=== PATIENT | female | born 1990 | race African-American/Black ===

== ENCOUNTER 2019-02-10 21:07 | Emergency (ER) | payer MEDICAID, SELFPAY ==
[2019-02-10 21:08] VITALS: BP 145/69; PULSE 97; RESP 18; TEMP 36.9; O2SAT 95; BMI 113.7
--- NOTE | 2019-02-10 22:00 | CT_ITS ---
STUDY: CT ABDOMEN AND PELVIS WITHOUT CONTRAST REASON FOR EXAM: Female, 28 years old. Dominant, nausea pain, vomiting RADIATION DOSAGE (If Supplied By Facility): CTDIvol = ( 24.18 ) mGy, DLP = ( 1461.94 ) mGycm TECHNIQUE: Transaxial images were obtained from the dome of the diaphragm to the symphysis pubis without oral contrast, and without intravenous contrast. Sagittal and coronal images were reconstructed. Individualized dose optimization techniques were used for this CT. COMPARISON: None. FINDINGS: This is a limited non-IV nonoral contrast study. The visualized lung bases are unremarkable. The visualized portions of the heart are within normal limits. Normal liver. Normal gallbladder and extrahepatic biliary system. Normal spleen. Normal pancreas. Normal bilateral adrenal glands. Normal right kidney. Normal left kidney. Normal visualized stomach. Normal small intestine. There is a moderate colonic fecal load. There is wall thickening of the rectum. The appendix is visualized and appears normal. Normal abdominal aorta. Normal inferior vena cava. Normal retroperitoneum. Normal urinary bladder. Normal abdominal wall. Normal osseous structures. CT/Abdomen/Pelvis without Cont IMPRESSION: This is a limited non-IV nonoral contrast study. Moderate colonic fecal load, wall thickening of the rectum which could be due to incomplete distention, colitis pattern or colonic malignancy. CT colonoscopy or colonoscopy follow-up would be recommended. Electronically Signed: Jose Mejia, at 23:14 EDT Tel , Service support ,
[2019-02-10] MEDS: 0.9% Normal Saline 1,000 ML 1000 ML IV (22:18)
[2019-02-10] MEDS: Morphine 4 MG/ML Syringe IV ×2 (22:19→23:34)
[2019-02-10] MEDS: Ondansetron 4 MG/2 ML Vial IV (22:19)
[2019-02-10 22:35] LABS: Absolute Lymphocyte Count 2.57 X10^3/ul (0.83-4.51); Absolute Neutrophil Count 6.6 X10^3/uL (2.0-7.7); Basophil# 0.01 X10^3/uL; Basophil% 0.1 % (0-1); Hematocrit 34.1 % (37-47); Hemoglobin 10.3 g/dl (12.0-15.0); Lymphocyte # 2.57 X10^3/ul (4.0); Lymphocyte % 26.7 % (19-41); Mean Corp Hgb Conc 30.2 g/gl (32-36); Mean Corpuscular Hgb 21.9 pg (27.0-32.0); Mean Corpuscular Volume 72.6 fL (81-99); Mean Platelet Vol. 8.6 fl (6.2-12.0); Monocyte# 0.47 X10^3/uL; Monocyte% 4.9 % (0-10); Neutrophil # 6.55 X10^3/uL (2.7-7.7); Neutrophil % 68.1 % (47-70); Platelet Count 314 K/mm3 (150-450); RBC Distribution Width CV 15.9 % (11.6-14.6); RBC Distribution Width SD 42.3 fl (35.1-43.9); White Blood Count 9.6 K/mm3 (4.4-11.0)
[2019-02-10 22:36] LABS: Differential Indicated SCAN CRITERIA MET; POSITIVE COUNT NO; POSITIVE DIFFERENTIAL NO; POSITIVE MORPHOLOGY YES
[2019-02-10 22:48] LABS: ALB/GLOB Ratio 0.6 RATIO (0.9-2.4); AST(SGOT) 14 U/L (15-37); Alanine Aminotransfer ALT/SGPT 22 U/L (13-56); Albumin, Serum 3.1 g/dL (3.2-5.0); Alkaline Phosphatase 139 U/L (45-117); Anion Gap 6 (5-15); BUN 14 mg/dL (7-18); BUN/Creat Ratio 14.2 RATIO (10-20); Calcium,Total 8.5 mg/dL (8.5-10.1); Chloride 101 mmol/L (98-107); Creatinine, Serum 0.99 mg/dL (0.55-1.02); EST Glomerular Filtration Rate 72 mL/min (>60); Est Glom Filt Rate - Afr Amer 87 mL/min (>60); Estimated Creatinine Clearance 77.49 ml/min; Globulin 4.8 g/dL (2.2-4.2); Glucose 154 mg/dL (74-106); Lipase 105 U/L (73-393); Potassium 3.9 mmol/L (3.5-5.1); Protein, Total 7.9 g/dL (6.4-8.2); Sodium Level 134 mmol/L (136-145)
[2019-02-10 22:59] LABS: Differential Comment SCANNED
[2019-02-10 23:38] VITALS: RESP 16
--- NOTE | 2019-02-10 23:56 | ED.VISSUMM ---
- ER Visit Summary Date of Service: 02/10/19 Chief Complaint: Abdominal pain History of Present Illness: The patient is a 28 F with abdominal pain for the past 2-3 days. She has somewhat decreased BMs she has some nausea and 2 episodes of vomiting no chest pain shortness of breath no fever or chills no difficulty swallowing. Physical Examination: Patient had's and mute, I am discussing through the official inspector soldering on the iPad. 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 Emergency Department Course and Treatment: White count is normal, CT shows constipation patient will be discharged with MiraLAX. Disposition: Discharge stable condition Impression: Constipation This note was generated with Dajie dictation software. It may contain incorrect words, spelling, and punctuation that were not noted in review of the chart prior to signing ED Disposition - Plan for ED Patient: Disposition: Home or Assisted Living Instructions: ED Constipation Prescriptions: Polyethylene Glycol 3350 [Miralax] 17 gm PO DAILY #10 packet Referrals: Care Physician,No Primary [Primary Care Provider] - 3-5 Days
--- NOTE | 2019-02-11 00:01 | ED.DCSUM_ITS ---
- ER Visit Summary Date of Service: 02/10/19 Chief Complaint: Abdominal pain History of Present Illness: The patient is a 28 F with abdominal pain for the past 2-3 days. She has somewhat decreased BMs she has some nausea and 2 episodes of vomiting no chest pain shortness of breath no fever or chills no d ifficulty swallowing. Physical Examination: Patient had's and mute, I am discussing through the official parts interpreter on the iPad. 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 Emergency Department Course and Treatment: White count is normal, CT shows constipation patient will be discharged with MiraLAX. Disposition: Discharge stable condition Impression: Constipation This note was generated with Eland dictation software. It may contain incorrect words, spelling, and punctuation that were not noted in review of the chart prior to signing ED Disposition - Plan for ED Patient: Disposition: Home or Assisted Living Instructions: ED Constipation Prescriptions: Polyethylene Glycol 3350 [Miralax] 17 gm PO DAILY #10 packet Referrals: Care Physician,No Primary [Primary Care Provider] - 3-5 Days
[2019-02-11 00:03] VITALS: RESP 16
--- NOTE | 2019-02-11 00:18 | ED.DEP ---
ED Disposition - Plan for ED Patient: Disposition: Home or Assisted Living Instructions: ED Constipation, Treating Gastritis Prescriptions: Ondansetron [Zofran Odt] 4 mg PO Q8H PRN PRN #10 tab PRN Reason: Nausea Omeprazole 0 mg PO DAILY #30 capsule. Polyethylene Glycol 3350 [Miralax] 17 gm PO DAILY #10 packet Referrals: Care Physician,No Primary [Primary Care Provider] - 3-5 Days
[2019-02-11] MEDS: Ondansetron ODT 4 MG Tablet 8 MG PO (01:55)
== END 2019-02-11 02:39 | disposition home or self-care (01) ==
PROVIDERS: Emergency Medicine; Emergency Provider Emergency Medicine
DX: K59.00 Constipation, unspecified (principal); R11.2 Nausea with vomiting, unspecified; Z89.612 Acquired absence of left leg above knee
CPT/HCPCS: 74176; 80053; 83690; 85025; 96361; 96374; 96375; 96376; 99283; J7030; A4216; J2405

== ENCOUNTER 2019-02-11 15:33 | Emergency (ER) | payer MEDICAID, SELFPAY ==
[2019-02-10 21:08] VITALS: BMI 113.7
[2019-02-11 15:34] VITALS: BP 137/79; PULSE 93; RESP 18; TEMP 36.6; O2SAT 94
--- NOTE | 2019-02-11 15:46 | ED.VIS.GEN ---
History of Present Illness Chief Complaint: Abd Pain Detail of Chief Complaint: Unable to obtain Narrative: Patient is a 28-year-old female who does not read lips and will not communicate in any form with me. I was informed that the sign spanish medical interpreter was paged and would be 1 hour. I also was informed that she was seen at [facility] prior to presentation in the emergency department. At this point history is unobtainable. Once sign spanish medical interpreter arrived able to obtain history and performed physical. Patient presents because of medicine she was given last evening did not alleviate her nausea vomiting diarrhea. She reported improvement after Zofran. She was given Reglan. Prior similar symptoms: No Recent Illness/Hospitalization: No Past Medical History - Allergies and Home Meds Allergies/Adverse Reactions: Allergies latex Allergy (Verified 02/10/19 21:13) Rash Primary Care Physician: Care Physician,No Primary [Primary Care Provider] - Smoking Status: Unknown if ever smoked Review of Systems ROS: Unable to Obtain - At the time of initial evaluation unobtainable. Patient will not attempt to read my lips, communicate by writing. General: Denies: Chills, Fever, Sweats Eyes: Denies: Visual changes - bilaterally, Blurred Vision - bilaterally, Diplopia ENT: Denies: Rhinorrhea, Sore throat Cardiovascular: Denies: Chest pain, Palpitations Respiratory: Denies: Dyspnea, Cough, Dyspnea on exertion Gastrointestinal: Reports: Abdominal pain, Nausea, Vomiting, Diarrhea. Denies: Melena, Hematochezia Genitourinary: Denies: Dysuria, Hematuria, Frequency Musculoskeletal: Denies: Back pain, Extremity Pain Skin: Denies: Rash, Wounds Neurological: Reports: Headache. Denies: Weakness, Numbness Physical Exam Vital Signs/Narrative: Vital Signs Temp Pulse Resp BP Pulse Ox 02/11/19 15:34 97.8 F 93 18 137/79 H 94 Inital Vital Signs reviewed: Yes General: Well nourished, Well developed, No Acute Distress Head: Normocephalic, Atraumatic Eyes: Perrl, EOMI. Negative for: Pale conjunctiva, Scleral icterus ENT: No rhinorrhea, Dry mucous membranes Neck: Supple, Nontender, No lymphadenopathy, No JVD Cardiovascular: Regular rate, Regular rhythm, No murmurs, Normal S1, Normal S2 Respiratory: No distress, CTA bilaterally, Chest nontender, Chest tenderness Abdomen: Soft, Nondistended, No masses, Tender, Hypoactive bowel sounds. Negative for: Nontender, Normal bowel sounds, Guarding, Rebound tenderness, Hyperactive bowel sounds, Hepatomegaly, Splenomegaly, Mass, Pulsatile mass, Ventral hernia, Umbilical hernia, Solis's sign Back: Negative for: Nontender, Normal Inspection Extremities: Nontender, No edema Skin: Normal color, No rash Neurological: Alert, Oriented x3, Cranial nerves II-XII grossly intact, Normal Strength, Normal Sensation Psychological: Normal affect, - - Patient appears angry and gave me a score and full look when I asked if she would communicate by writing. She then closed her eyes and looked away. Diagnostic/Tx/Re-eval Laboratory Results 02/11/19 02/11/19 02/11/19 16:40 16:40 16:40 WBC 9.2 RBC 4.58 Hgb 10.1 L Hct 33.8 L MCV 73.8 L MCH 22.1 L MCHC 29.9 L RDW 16.1 H RDW Differential 43.3 Plt Count 274 MPV 8.1 Immature Gran % (Auto) 0.100 Neut % (Auto) 73.1 H Lymph % (Auto) 22.6 [place] % (Auto) 4.1 Eos % (Auto) 0.0 Baso % (Auto) 0.1 Absolute Neuts (auto) 6.7 Absolute Lymphs (auto) 2.08 Total Counted Not Reportable Platelet Estimate ADEQUATE Hypochromasia 1+ Anisocytosis 1+ Microcytosis 1+ Target Cells RARE Ovalocytes RARE Acanthocytes (Spur) RARE Sodium 136 Potassium 4.0 Chloride 104 Carbon Dioxide 30.0 Anion Gap 2 L BUN 11 Creatinine 1.01 Estim Creat Clear Calc 0.00 Est GFR (MDRD) Af Amer 85 Est GFR (MDRD) Non-Af 70 BUN/Creatinine Ratio 10.9 Glucose 109 H Calcium 8.2 L Total Bilirubin 0.20 AST 15 ALT 23 Alkaline Phosphatase 123 H Total Protein 7.9 Albumin 3.1 L Globulin 4.8 H Albumin/Globulin Ratio 0.6 L Lipase 81 Serum , Qual NEGATIVE Patient discarded her urine and reason there is no urine result. Since there is no evidence of renal failure, electrolyte abnormality and she has passed p.o. challenge will discharge with prescription for Reglan. - Medical Decision Making Since patient will not communicate and would not allow physical exam will obtain basic blood work until the sign spanish medical interpreter arrives. I was informed this may take up to 1 hour. Patient initially given Reglan with improvement but not relief. She sepsis given Reglan. She has subsequently passed p.o. challenge. As for mentioned she discarded her urine and reason for no urine results. Plan is to discharge with prescription for Reglan and follow-up with PCP. Since you do not have a primary care physician the area referred to Dr. Pat Selby. ED Disposition - Plan for ED Patient: Disposition: Home or Assisted Living Diagnosis: Abdominal pain, vomiting, and diarrhea, Mild dehydration Instructions: ED Vomiting Diarrhea Nonspecific Ad Prescriptions: Dicyclomine HCl [Bentyl] 20 mg PO TIDAC #20 cap Metoclopramide [Reglan] 10 mg PO 4X/DAY PRN #20 tab PRN Reason: Headache Referrals: Care Physician,No Primary [Primary Care Provider] - Pat Selby DO [STAFF PHYSICIAN] - 3-5 Days if not improving
--- NOTE | 2019-02-11 15:49 | ED.DCSUM_ITS ---
History of Present Illness Chief Complaint: Abd Pain Detail of Chief Complaint: Unable to obtain Narrative: Patient is a 28-year-old female who does not read lips and will not communicate in any form with me. I was informed that the sign welder plasma arc was paged and would be 1 hour. I also was informed that she was seen at [facility] prior to presentation in the emergency department. At this point history is unobtainable. Once sign welder plasma arc arrived able to obtain history and performed physical. Patient presents because of medicine she was given last evening did not alleviate her nausea vomiting diarrhea. She reported improvement after Zofran. She was given Reglan. Prior similar symptoms: No Recent Illness/Hospitalization: No Past Medical History - Allergies and Home Meds Allergies/Adverse Reactions: Allergies latex Allergy (Verified 02/10/19 21:13) Rash Primary Care Physician: Care Physician,No Primary [Primary Care Provider] - Smoking Status: Unknown if ever smoked Review of Systems ROS: Unable to Obtain - At the time of initial evaluation unobtainable. Patient will not attempt to read my lips, communicate by writing. General: Denies: Chills, Fever, Sweats Eyes: Denies: Visual changes - bilaterally, Blurred Vision - bilaterally, Diplopia ENT: Denies: Rhinorrhea, Sore throat Cardiovascular: Denies: Chest pain, Palpitations Respiratory: Denies: Dyspnea, Cough, Dyspnea on exertion Gastrointestinal: Reports: Abdominal pain, Nausea, Vomiting, Diarrhea. Denies: Melena, Hematochezia Genitourinary: Denies: Dysuria, Hematuria, Frequency Musculoskeletal: Denies: Back pain, Extremity Pain Skin: Denies: Rash, Wounds Neurological: Reports: Headache. Denies: Weakness, Numbness Physical Exam Vital Signs/Narrative: Vital Signs Temp Pulse Resp BP Pulse Ox 02/11/19 15:34 97.8 F 93 18 137/79 H 94 Inital Vital Signs reviewed: Yes General: Well nourished, Well developed, No Acute Distress Head: Normocephalic, Atraumatic Eyes: Perrl, EOMI. Negative for: Pale conjunctiva, Scleral icterus ENT: No rhinorrhea, Dry mucous membranes Neck: Supple, Nontender, No lymphadenopathy, No JVD Cardiovascular: Regular rate, Regular rhythm, No murmurs, Normal S1, Normal S2 Respiratory: No distress, CTA bilaterally, Chest nontender, Chest tenderness Abdomen: Soft, Nondistended, No masses, Tender, Hypoactive bowel sounds. Nega tive for: Nontender, Normal bowel sounds, Guarding, Rebound tenderness, Hyperactive bowel sounds, Hepatomegaly, Splenomegaly, Mass, Pulsatile mass, Ventral hernia, Umbilical hernia, Solis's sign Back: Negative for: Nontender, Normal Inspection Extremities: Nontender, No edema Skin: Normal color, No rash Neurological: Alert, Oriented x3, Cranial nerves II-XII grossly intact, Normal Strength, Normal Sensation Psychological: Normal affect, - - Patient appears angry and gave me a score and full look when I asked if she would communicate by writing. She then closed her eyes and looked away. Diagnostic/Tx/Re-eval Laboratory Results 02/11/19 02/11/19 02/11/19 16:40 16:40 16:40 WBC 9.2 RBC 4.58 Hgb 10.1 L Hct 33.8 L MCV 73.8 L MCH 22.1 L MCHC 29.9 L RDW 16.1 H RDW Differential 43.3 Plt Count 274 MPV 8.1 Immature Gran % (Auto) 0.100 Neut % (Auto) 73.1 H Lymph % (Auto) 22.6 [place] % (Auto) 4.1 Eos % (Auto) 0.0 Baso % (Auto) 0.1 Absolute Neuts (auto) 6.7 Absolute Lymphs (auto) 2.08 Total Counted Not Reportable Platelet Estimate ADEQUATE Hypochromasia 1+ Anisocytosis 1+ Microcytosis 1+ Target Cells RARE Ovalocytes RARE Acanthocytes (Spur) RARE Sodium 136 Potassium 4.0 Chloride 104 Carbon Dioxide 30.0 Anion Gap 2 L BUN 11 Creatinine 1.01 Estim Creat Clear Calc 0.00 Est GFR (MDRD) Af Amer 85 Est GFR (MDRD) Non-Af 70 BUN/Creatinine Ratio 10.9 Glucose 109 H Calcium 8.2 L Total Bilirubin 0.20 AST 15 ALT 23 Alkaline Phosphatase 123 H Total Protein 7.9 Albumin 3.1 L Globulin 4.8 H Albumin/Globulin Ratio 0.6 L Lipase 81 Serum , Qual NEGATIVE Patient discarded her urine and reason there is no urine result. Since there is no evidence of renal failure, electrolyte abnormality and she has passed p.o. challenge will discharge with prescription for Reglan. - Medical Decision Making Since patient will not communicate and would not allow physical exam will obtain basic blood work until the sign welder plasma arc arrives. I was informed this may take up to 1 hour. Patient initially given Reglan with improvement but not relief. She sepsis given Reglan. She has subsequently passed p.o. challenge. As for mentioned she discarded her urine and reason for no urine results. Plan is to discharge with prescription for Reglan and follow-up with PCP. Since you do not have a primary care physician the area referred to Dr. Pat Selby. ED Disposition - Plan for ED Patient: Disposition: Home or Assisted Living Diagnosis: Abdominal pain, vomiting, and diarrhea, Mild dehydration Instructions: ED Vomiting Diarrhea Nonspecific Ad Prescriptions: Dicyclomine HCl [Bentyl] 20 mg PO TIDAC #20 cap Metoclopramide [Reglan] 10 mg PO 4X/DAY PRN #20 tab PRN Reason: Headache Referrals: Care Physician,No Primary [Primary Care Provider] - Pat Selby DO [STAFF PHYSICIAN] - 3-5 Days if not improving
[2019-02-11 16:47] LABS: Absolute Lymphocyte Count 2.08 X10^3/ul (0.83-4.51); Absolute Neutrophil Count 6.7 X10^3/uL (2.0-7.7); Basophil# 0.01 X10^3/uL; Basophil% 0.1 % (0-1); Hematocrit 33.8 % (37-47); Hemoglobin 10.1 g/dl (12.0-15.0); Lymphocyte # 2.08 X10^3/ul (4.0); Lymphocyte % 22.6 % (19-41); Mean Corp Hgb Conc 29.9 g/gl (32-36); Mean Corpuscular Hgb 22.1 pg (27.0-32.0); Mean Corpuscular Volume 73.8 fL (81-99); Mean Platelet Vol. 8.1 fl (6.2-12.0); Monocyte# 0.38 X10^3/uL; Monocyte% 4.1 % (0-10); Neutrophil # 6.72 X10^3/uL (2.7-7.7); Neutrophil % 73.1 % (47-70); Platelet Count 274 K/mm3 (150-450); RBC Distribution Width CV 16.1 % (11.6-14.6); RBC Distribution Width SD 43.3 fl (35.1-43.9); Red Blood Count 4.58 M/mm3 (4.2-5.4); White Blood Count 9.2 K/mm3 (4.4-11.0)
[2019-02-11 16:54] LABS: Differential Indicated SCAN CRITERIA MET; POSITIVE COUNT NO; POSITIVE DIFFERENTIAL NO; POSITIVE MORPHOLOGY YES
[2019-02-11] MEDS: Ondansetron 4 MG/2 ML Vial IV (17:00)
[2019-02-11 17:02] LABS: ALB/GLOB Ratio 0.6 RATIO (0.9-2.4); AST(SGOT) 15 U/L (15-37); Alanine Aminotransfer ALT/SGPT 23 U/L (13-56); Albumin, Serum 3.1 g/dL (3.2-5.0); Alkaline Phosphatase 123 U/L (45-117); Anion Gap 2 (5-15); BUN 11 mg/dL (7-18); BUN/Creat Ratio 10.9 RATIO (10-20); Calcium,Total 8.2 mg/dL (8.5-10.1); Chloride 104 mmol/L (98-107); Creatinine, Serum 1.01 mg/dL (0.55-1.02); EST Glomerular Filtration Rate 70 mL/min (>60); Est Glom Filt Rate - Afr Amer 85 mL/min (>60); Globulin 4.8 g/dL (2.2-4.2); Glucose 109 mg/dL (74-106); Lipase 81 U/L (73-393); Protein, Total 7.9 g/dL (6.4-8.2); Sodium Level 136 mmol/L (136-145)
[2019-02-11 17:15] LABS: Anisocytosis 1+; Hypochromasia 1+; Microcytosis 1+; Ovalocyte RARE; Platelet Estimate ADEQUATE (ADEQ)
[2019-02-11 17:16] LABS: Acanthocytes RARE; Target Cells RARE
[2019-02-11 18:01] LABS: Pregnancy, Serum, hCG Quali. NEGATIVE Negative (0-9 Nonpreg)
[2019-02-11] MEDS: 0.9% Normal Saline 1,000 ML 1000 ML IV (18:24)
[2019-02-11] MEDS: Metoclopramide 10 MG/2 ML Vial IV (18:25)
[2019-02-11 20:05] VITALS: RESP 16
== END 2019-02-11 20:06 | disposition home or self-care (01) ==
PROVIDERS: Emergency Provider Emergency Medicine
DX: R10.9 Unspecified abdominal pain (principal); E86.0 Dehydration; R11.10 Vomiting, unspecified; R19.7 Diarrhea, unspecified; Z91.040 Latex allergy status
CPT/HCPCS: 80053; 83690; 84703; 85025; 96361; 96374; 96375; 99283; A4216; J2405